=== PATIENT | female | born 1935 | race Two or more races ===

== ENCOUNTER 2017-01-19 18:36 | Inpatient (IN) | payer MEDICARE, OTHER ==
[~2017-01-19] VITALS: Ht 157.5 cm; Wt 45.4 kg
--- NOTE | 2017-01-19 18:50 | NUR ---
MEDICAL CLEARANCE FOR [facility] ADMISSION PT IS UNABLE TO SLEEP, WITH DECREASED APPETITE. AWAITING MD ORDER
[2017-01-19 19:09] LABS: BASOPHILS % (AUTO) 0.5 % (0.0-2.0); EOSINOPHILS # (AUTO) 0.1 /CMM (0.0-0.7); EOSINOPHILS % (AUTO) 1.3 % (0.0-6.0); HEMATOCRIT 44 % (33-45); HEMOGLOBIN 14.8 g/dL (11.5-14.8); LYMPHOCYTES # (AUTO) 1.2 /CMM (0.8-4.8); LYMPHOCYTES % (AUTO) 22.8 % (20.0-44.0); MEAN CORPUSCULAR HEMOGLOBIN 31 PG (26.0-33.0); MEAN CORPUSCULAR HGB CONC 34 g/dl (31.0-36.0); MEAN CORPUSCULAR VOLUME 91 fL (82-100); MONOCYTES # (AUTO) 0.5 /CMM (0.1-1.30); MONOCYTES % (AUTO) 9.8 % (2.0-12.0); NEUTROPHILS # (AUTO) 3.6 /CMM (1.8-8.9); NEUTROPHILS % (AUTO) 65.6 % (43.0-81.0); PLATELET COUNT (AUTO) 197 /CMM (150-450); RDW COEFFICIENT OF VARIATION 12.8 (11.5-15.0); RED BLOOD CELL COUNT(AUTO) 4.84 MIL/uL (4.0-5.2); WHITE BLOOD COUNT (AUTO) 5.4 K/uL (4.3-11.0)
[2017-01-19 19:16] LABS: CALCIUM, SERUM 9.5 mg/dL (8.5-10.1); CARBON DIOXIDE 27 mmol/L (21-32); CHLORIDE 109 mmol/L (98-107); CREATININE 1.1 mg/dL (0.6-1.3); GLUCOSE 94 mg/dL (74-106); POTASSIUM 4.4 mmol/L (3.5-5.1); SODIUM SERUM 142 mmol/L (136-145); UREA NITROGEN, BLOOD 28 mg/dL (7-18)
[2017-01-19 19:30] LABS: ALANINE AMINOTRANSFERASE 36 U/L (12-78); ALBUMIN 3.1 g/dL (3.4-5.0); ALCOHOL, BLOOD < 3 mg/dL (0-0); ALKALINE PHOSPHATASE 74 U/L (46-116); ASPARTATE AMINOTRANSFERASE 40 U/L (15-37); BILIRUBIN,DIRECT 0.2 mg/dL (0.0-0.2); BILIRUBIN,TOTAL 0.5 mg/dL (0.2-1.0); SALICYLATE 6.9 mg/dL (2.8-20.0); TOTAL PROTEIN, SERUM 6.9 g/dL (6.4-8.2)
[2017-01-19 19:39] LABS: ACETAMINOPHEN < 2 ug/ml (10-30)
--- NOTE | 2017-01-19 19:47 | NUR ---
CALLED [facility] TO COME SEE PTMARLEN WITHIN THE HOUR
--- NOTE | 2017-01-19 19:50 | NUR ---
PT REFUSED TO URINATE AT THIS TIME. GOT VERBAL ORDER FROM [facility]AN[facility] STRAIGHT IN AND OUT CATH FOR URINE SAMPLE
--- NOTE | 2017-01-19 19:55 | NUR ---
URINE SAMPLE COLLECTED SENT TO LAB
[2017-01-19 20:02] LABS: APPEARANCE,URINE Clear (CLEAR); BILIRUBIN,URINE SMALL (NEGATIVE); BLOOD, URINE Small Ery/uL (NEGATIVE); COLOR,URINE Yellow (YELLOW); KETONES,URINE Trace (NEGATIVE); LEUKOCYTE ESTERASE ,URINE Small (NEGATIVE); NITRITE, URINE Positive (NEGATIVE); PH,URINE 5.5 (5.0-8.0); PROTEIN,URINE Negative (NEGATIVE); UGLUCOSE Negative (NEGATIVE)
[2017-01-19 20:24] LABS: BACTERIA,URINE 2+ /HPF (None Seen); SQUAMOUS EPITHELIAL CELL,UR Few /HPF (None Seen)
[2017-01-19] MEDS ORDERED: CEPHALEXIN MONOHYDRATE 500 MG CAPSULE PO ONE ×2 (20:45→21:00)
--- NOTE | 2017-01-19 20:48 | NUR ---
[facility] PSY[facility] EVAL AT BEDSIDE
--- NOTE | 2017-01-19 22:00 | NUR ---
REPORT GIVEN TO ARNEL FRITZ ACCEPTING MD DR AVINA PSYCH. [address] HOLD IN [facility]
--- NOTE | 2017-01-19 23:00 | NUR ---
ADMITTED THIS 81 YEARS OLD FEMALE FROM . PATIENT WAS PLACED ON 5150 HOLD DUE TO GRAVELY DISABLE, BIPOLAR DISEASE, AND MAJOR DEPRESSION PATIENT IS UNABLE TO EAT, CAN,T CARE FOR HER- SELF. PATIENT IS ALERT X 2- AMBULATORY REFUSED TO SIGN THE CONSENT PAPER ADVISEMENT EXPLAIN AND HANDED TO PATIENT. PATIENT ASLEEP RIGHT NOW NO DISTRESS NOTED BREATHING EVEN NORMAL PATTERN AFEBRILE. NO BEHAVIORAL PROBLEM NOTED WILL CONTINUES TO MONITOR THE PATIENT EVERY 15 MIS FOR SAFETY AND FALL PRECAUTIONS.
[2017-01-19] MEDS ORDERED: ZOLPIDEM TARTRATE 5 MG TABLET PO PRN (23:30)
[2017-01-19] MEDS ORDERED: MAG HYDROX/AL HYDROX/SIMETH 30 ML UDC PO PRN (23:30)
[2017-01-19] MEDS ORDERED: LORAZEPAM 0.5 MG TABLET PO PRN (23:30)
[2017-01-19] MEDS ORDERED: MAGNESIUM HYDROXIDE 30 ML UDC PO PRN (23:30)
[2017-01-19] MEDS ORDERED: ACETAMINOPHEN 325 MG TABLET PO PRN (23:30)
[2017-01-20] MEDS ORDERED: clonazePAM 0.5 MG TABLET PO PRN (06:30)
--- NOTE | 2017-01-20 06:31 | NUR ---
PER DAUGHTER SHAHAB PATIENT IS TAKING ONLY LEVOTHYROXINE 75 MCG WEEKLY AND KLONOPIN 0.5MG HS WILL ENDORSE TO THE MORNING NURSE.
[2017-01-20 07:23] LABS: ALANINE AMINOTRANSFERASE 38 U/L (12-78); ALBUMIN 2.7 g/dL (3.4-5.0); ALKALINE PHOSPHATASE 65 U/L (46-116); ASPARTATE AMINOTRANSFERASE 40 U/L (15-37); BILIRUBIN,TOTAL 0.5 mg/dL (0.2-1.0); CALCIUM, SERUM 8.7 mg/dL (8.5-10.1); CARBON DIOXIDE 26 mmol/L (21-32); CHLORIDE 109 mmol/L (98-107); CREATININE 0.8 mg/dL (0.6-1.3); GLUCOSE 92 mg/dL (74-106); POTASSIUM 4.2 mmol/L (3.5-5.1); SODIUM SERUM 143 mmol/L (136-145); TOTAL PROTEIN, SERUM 6.3 g/dL (6.4-8.2); UREA NITROGEN, BLOOD 23 mg/dL (7-18)
[2017-01-20 07:25] LABS: CHOLESTEROL 160 mg/dL (<200); HDL CHOLESTEROL 52 mg/dL (40-60); LDL 88 mg/dL (0-99); TRIGLYCERIDES 114 mg/dL (30-150)
[2017-01-20 07:36] LABS: BASOPHILS % (AUTO) 0.9 % (0.0-2.0); EOSINOPHILS # (AUTO) 0.1 /CMM (0.0-0.7); EOSINOPHILS % (AUTO) 2.2 % (0.0-6.0); HEMATOCRIT 42 % (33-45); HEMOGLOBIN 14.1 g/dL (11.5-14.8); LYMPHOCYTES # (AUTO) 1.1 /CMM (0.8-4.8); LYMPHOCYTES % (AUTO) 24.4 % (20.0-44.0); MEAN CORPUSCULAR HEMOGLOBIN 31 PG (26.0-33.0); MEAN CORPUSCULAR HGB CONC 34 g/dl (31.0-36.0); MEAN CORPUSCULAR VOLUME 92 fL (82-100); MONOCYTES # (AUTO) 0.5 /CMM (0.1-1.30); MONOCYTES % (AUTO) 11.3 % (2.0-12.0); NEUTROPHILS # (AUTO) 2.8 /CMM (1.8-8.9); NEUTROPHILS % (AUTO) 61.2 % (43.0-81.0); PLATELET COUNT (AUTO) 173 /CMM (150-450); RDW COEFFICIENT OF VARIATION 13.8 (11.5-15.0); RED BLOOD CELL COUNT(AUTO) 4.51 MIL/uL (4.0-5.2); WHITE BLOOD COUNT (AUTO) 4.5 K/uL (4.3-11.0)
[2017-01-20] MEDS ORDERED: OLAN10TA3 PO (07:58)
[2017-01-20] MEDS ORDERED: CLON0.5T4 PO (07:58)
[2017-01-20] MEDS ORDERED: LEVO75TA7 PO (07:58)
[2017-01-20] MEDS ORDERED: LEVO50TA8 PO (07:58)
[2017-01-20 08:00] VITALS: BP 104/59
[2017-01-20] MEDS: LEVOTHYROXINE SODIUM 75 MCG TABLET PO SCH (09:50)
--- NOTE | 2017-01-20 10:20 | NUR ---
gps reference librarian: notes thong (grnddtr) called and wants to visit on non-schedule hours. cn aware. dr. tariq here and made aware with verbal order okay for family to visit only for 30mins. thong made aware and will be here around 2pm as stated. pt made aware. Addendum: 01/20/17 at 1829 by GLADYS ALLEN LVN per rick (granddaughter), she can't drive late at night due to living in [place] as stated.
--- NOTE | 2017-01-20 15:00 | NUR ---
gps nephrology social worker: notes rick (granddaughter) arrived to visit and started making a scene in the nurses's station, refusing to have her bag checked in, stated, "how come last night, they were okay with my bag with me, i have my rent money in here, i'm not going to surrender my bag here." informed rick that it's gps policy and informed her that we have a locker for her belongings and also informed her that we have cameras. rick agreed to put her belongings in the locker room, but still not happy about it. rick still paranoid about the whole situation. rick visited her grandma at bedside.
--- NOTE | 2017-01-20 15:10 | NUR ---
gps protocol manager: notes rick (granddaughter) remains belligerent, stating, "i should have not brought her here since you have bad reviews, i don't know why i did that, but i get the one who evaluated her in the emergency room convince me that she will get better, all your staff lied to me, i was told she will be given her sleeping medication, i want to know all the name who works last night." staff and cn listened and answered all her questions and concerns.
--- NOTE | 2017-01-20 15:35 | NUR ---
gps methods analyst: notes rick (granddaughter) at the nurse's station and started making another scene; granddaughter suspicious to staff; asking for dr. tariq's number, insisting that her medications is not working and she has been taking zyprexa for two months and hasn't worked. educated granddaughter re: med by staff and cn, but still getting pararoid despite med education provided. cn spoke to pt and okay to release any information as stated. granddaughter accusing staff not giving her ambien last night for sleep, stated, "i was told they were going to give her ambien since she has insomnia problem." granddaughter continued to be belligerent; granddaughter demanded a name of the nurse that was on last night in the emergency room; stated, "i want her name who evaluated because she lied to me, i was told she is going to get better, but still she is not, she is still not eating." all questions and concerned answered by staff and cn.
[2017-01-20 16:00] VITALS: BP 117/64
--- NOTE | 2017-01-20 16:19 | NUR ---
gps business computers teacher: notes dr. tariq called with order to increase her ambien to 10mg po qhs prn and make klonopin 0.5mg po qhs routine instead of prn. order read back and carried out and acknowledged. also dr. tariq informed me that he has spoken to her granddaughter (rick).
[2017-01-20] MEDS: OLANZAPINE 5 MG/TAB.RAPDIS PO SCH ×2 (16:46→21:32)
--- NOTE | 2017-01-20 18:14 | NUR ---
gps molded candles wicker: md visit seen and examined by lisbeth chaudhry ([facility]) with order. rick (granddaughter) came back to visit and brought outside food. belongings locked up in the locker room by lux.
[2017-01-20 20:00] VITALS: BP 122/76
[2017-01-20] MEDS: clonazePAM 0.5 MG TABLET PO SCH (21:31)
[2017-01-20] MEDS: CEPHALEXIN MONOHYDRATE 500 MG CAPSULE PO SCH (21:32)
[2017-01-21] MEDS: ZOLPIDEM TARTRATE 5 MG TABLET PO PRN ×2 (00:38→21:38)
--- NOTE | 2017-01-21 06:22 | NUR ---
patient said she has a partial tooth which grand daughter took it home coz it was hurting to her. charge nurse jose reyes.
--- NOTE | 2017-01-21 06:25 | NUR ---
[id number] mg administered to the patient and recheck patient after30 minutes patients was sleeping sound patient sleep for 7.5 hrs.
--- NOTE | 2017-01-21 07:30 | NUR ---
RN GPS OPENING NOTE PT IS LYING IN BED, COMFORTABLY, A&OX2. NO SOB, BREATHING ON ROOM AIR. NO ACUTE DISTRESS NOTED, ATTENDED ALL NEEDS AND ANTICIPATED , DENIES SI/ HI AT THIS TIME. SAFETY PRECAUTIONS OBSERVED. WILL CONTINUE TO MONITOR. BED IS IN LOWEST POSITION, AND CALL LIGHT IS WITHIN REACH.
[2017-01-21 08:00] VITALS: BP 112/63
[2017-01-21] MEDS: CEPHALEXIN MONOHYDRATE 500 MG CAPSULE PO SCH ×2 (09:52→21:37)
[2017-01-21] MEDS: OLANZAPINE 5 MG/TAB.RAPDIS PO SCH ×3 (09:52→21:38)
[2017-01-21] MEDS: NICOTINE PATCH (14MG) 14 MG PATCH.TD24 TD SCH (09:52)
[2017-01-21] MEDS: LEVOTHYROXINE SODIUM 75 MCG TABLET PO SCH (09:52)
--- NOTE | 2017-01-21 13:30 | NUR ---
GPS RN NOTES PT.'S DAUGHTER ARE AT PT.'S BEDSIDE. EXPLAINED TO DAUGHTER PT.'S MEDICATION REGIMEN, AND PT.'S CONDITION, AND MOOD TODAY. ALL DAUGHTER'S QUESTIONS WERE ANSWERED.
--- NOTE | 2017-01-21 15:24 | NUR ---
GPS RN NOTES PT.'S DAUGHTER BROUGHT FOOD FROM OUTSIDE. PT. CONSUMED 16 OZ MALT SHAKE, 3 CHEESE STICKS, AND A WELSH. PT. IS IN BED.
[2017-01-21 16:00] VITALS: BP 120/73
--- NOTE | 2017-01-21 16:00 | NUR ---
GPS RN NOTES PT.'S GRANDDAUGHTER, EMILIANO CALLED TO RECEIVE INFORMATION ABOUT HER GRANDMOTHER. EMILIANO IS NOT PT.'S FACE SHEET. ASKED PT. IF I HAVE PERMISSION TO SPEAK WITH EMILIANO HER GRANDDAUGHTER ABOUT HER CONDITION IN THE HOSPITAL, AND PT. AGREED. ON THE PHONE PT.'S TONE OF VOICE WAS LOUD, AND CRYING CLAIMING THAT THE DOCTORS HAVE NOT CHANGED ANYTHING IN HER GRANDMOTHER'S MEDICATION REGIMEN SINCE SHE WAS ADMITTED TO THE HOSPITAL, THAT HER GRANDMOTHER IS COUNTING ALL THE GENERATIONS OF CHILDREN ON HER HANDS, AND NOT SLEEPING. PT. ALSO STATES THAT THE DOCTOR'S ARE NOT CALLING BACK AFTER SHE LEAVES MESSAGES. PT. STATED THAT SHE TALKED TO DOCTOR AVINA, BUT WANTS TO SPEAK WITH ANOTHER DOCTOR WHO SAW HER GRANDMOTHER TODAY. GRANDDAUGHTER WAS EXPLAINED THAT HER GRANDMOTHER HAS BEEN EATING, AND SLEPT 7.5 HS LAST NIGHT PER WAREHOUSE FORKLIFT OPERATOR NURSE OBSERVATION. THAT THE I WOULD REACH OUT TO THE DOCTOR'S TO CALL HER BACK REGARDING CONCERNS ABOUT HER GRANDMOTHER'S MEDICATIONS AND CHANGES IN HEALTH CONDITION.
--- NOTE | 2017-01-21 16:15 | NUR ---
GPS RN NOTES TALKED TO DOCTOR NEGRON OVER THE PHONE TO EXPLAIN ABOUT PT.'S GRANDDAUGHTERS PHONE CALL. DOCTOR NEGRON EXPLAINED THAT THE CHARGE NURSE'S CAN HELP ME WITH THE FAMILY MEMBERS.
--- NOTE | 2017-01-21 16:20 | NUR ---
GPS RN NOTE CHARGE NURSE CARMINA IS AWARE OF FAMILY MEMBER, EMILIANO CALLING. PER CHARGE NURSE IF THE PT.'S GRANDDAUGHTER CALLS AGAIN CHARGE NURSE WILL TALK TO HER.
--- NOTE | 2017-01-21 19:16 | NUR ---
RN GPS CLOSING NOTE PT IS LYING IN BED, COMFORTABLY, A&OX2. NO SOB, BREATHING ON ROOM AIR. NO ACUTE DISTRESS NOTED, ATTENDED ALL NEEDS AND ANTICIPATED. SAFETY PRECAUTIONS OBSERVED. BED IS IN LOW POSITION. WILL ENDORSE REPORT TO TOBACCO CURER NURSE.
[2017-01-21 20:00] VITALS: BP 113/73
[2017-01-21] MEDS: clonazePAM 0.5 MG TABLET PO SCH (21:37)
[2017-01-22 08:00] VITALS: BP 110/66
[2017-01-22] MEDS: NICOTINE PATCH (14MG) 14 MG PATCH.TD24 TD SCH (08:20)
[2017-01-22] MEDS: LEVOTHYROXINE SODIUM 75 MCG TABLET PO SCH (08:20)
[2017-01-22] MEDS: CEPHALEXIN MONOHYDRATE 500 MG CAPSULE PO SCH ×2 (08:20→21:48)
[2017-01-22] MEDS: OLANZAPINE 5 MG/TAB.RAPDIS PO SCH ×3 (08:21→21:48)
[2017-01-22] MEDS: BOOST PLUS FOOD-VANILLA 237 ML BOX PO SCH ×2 (13:17→16:25)
[2017-01-22 16:00] VITALS: BP 110/65
[2017-01-22 20:00] VITALS: BP 113/64
[2017-01-22] MEDS: clonazePAM 0.5 MG TABLET PO SCH (21:48)
[2017-01-23 08:00] VITALS: BP 106/57
[2017-01-23] MEDS: BOOST PLUS FOOD-VANILLA 237 ML BOX PO SCH ×3 (08:15→16:31)
[2017-01-23] MEDS: OLANZAPINE 5 MG/TAB.RAPDIS PO SCH ×3 (08:16→21:48)
[2017-01-23] MEDS: LEVOTHYROXINE SODIUM 75 MCG TABLET PO SCH (08:16)
[2017-01-23] MEDS: NICOTINE PATCH (14MG) 14 MG PATCH.TD24 TD SCH (08:16)
[2017-01-23] MEDS: CEPHALEXIN MONOHYDRATE 500 MG CAPSULE PO SCH ×2 (08:16→21:47)
--- NOTE | 2017-01-23 10:41 | NUR ---
initial discharge plan: Pt. lives with her daughter, Reema Riggs, at [address] [facility], [place] [phone] and wants to discharge. SW will confirm with pt's daughter if pt. is able to return.
--- NOTE | 2017-01-23 10:50 | NUR ---
SW left a voicemail for pt's daughter, Reema Riggs, to discuss discharge planning. SW left a direct phone number to be contacted. ANJALI will follow up.
[2017-01-23 16:14] VITALS: BP 107/65
[2017-01-23 19:46] VITALS: BP 118/63
[2017-01-23] MEDS: MIRTAZAPINE 15 MG TABLET PO SCH (21:47)
[2017-01-23] MEDS: clonazePAM 0.5 MG TABLET PO SCH (21:47)
[2017-01-23] MEDS ORDERED: MIRTAZAPINE 15 MG TABLET PO SCH (22:00)
[2017-01-23] MEDS: ZOLPIDEM TARTRATE 5 MG TABLET PO PRN (23:53)
--- NOTE | 2017-01-23 23:54 | NUR ---
GPS RN: PATIENT AWAKE IN THE ROOM, OFFERED HER SLEEPING MEDICATION- AMBIEN 10 MG- GIVEN ORALLY ORDERED. WILL CONTINUE TO MONITOR PATIENT AND THE EFFECTIVENESS OF THE THE MEDICATION.
[2017-01-24] MEDS: LEVOTHYROXINE SODIUM 75 MCG TABLET PO SCH (07:57)
[2017-01-24 08:00] VITALS: BP 109/65
[2017-01-24] MEDS: OLANZAPINE 5 MG/TAB.RAPDIS PO SCH ×3 (08:00→21:17)
[2017-01-24] MEDS: NICOTINE PATCH (14MG) 14 MG PATCH.TD24 TD SCH (08:00)
[2017-01-24] MEDS: CEPHALEXIN MONOHYDRATE 500 MG CAPSULE PO SCH ×2 (08:00→21:18)
[2017-01-24] MEDS: BOOST PLUS FOOD-VANILLA 237 ML BOX PO SCH ×3 (08:08→16:36)
--- NOTE | 2017-01-24 15:33 | NUR ---
SW spoke with pt's daughter, Reema Riggs, who informed the psychotherapist social worker that pt. cannot return home and they will her placed in a facility. SW agreed to start sending referrals.
--- NOTE | 2017-01-24 15:34 | NUR ---
ANJALI received a voicemail from pt's granddaughter, Trini [phone] who stated that pt's daughter, Reema [phone] is not well herself and is not able to make decisions. She asked to be called back to discuss pt's care. ANJALI called back and had to leave a voicemail as Trini did not answer. Will follow up
[2017-01-24 16:00] VITALS: BP 111/65
[2017-01-24 20:30] VITALS: BP 119/59
[2017-01-24] MEDS: MIRTAZAPINE 15 MG TABLET PO SCH (21:18)
[2017-01-24] MEDS: clonazePAM 0.5 MG TABLET PO SCH (21:18)
[2017-01-25] MEDS: ZOLPIDEM TARTRATE 5 MG TABLET PO PRN (00:48)
--- NOTE | 2017-01-25 07:30 | NUR ---
received pt. keeping to self,stays in room.
[2017-01-25 08:00] VITALS: BP 121/71
[2017-01-25] MEDS: CEPHALEXIN MONOHYDRATE 500 MG CAPSULE PO SCH ×2 (10:06→21:11)
[2017-01-25] MEDS: NICOTINE PATCH (14MG) 14 MG PATCH.TD24 TD SCH (10:06)
[2017-01-25] MEDS: OLANZAPINE 5 MG/TAB.RAPDIS PO SCH ×3 (10:06→21:11)
[2017-01-25] MEDS: LEVOTHYROXINE SODIUM 75 MCG TABLET PO SCH (10:06)
[2017-01-25] MEDS: BOOST PLUS FOOD-VANILLA 237 ML BOX PO SCH ×3 (10:07→17:13)
--- NOTE | 2017-01-25 11:30 | NUR ---
dr. tariq in to see pt.
[2017-01-25 16:01] VITALS: BP 104/60
--- NOTE | 2017-01-25 18:26 | NUR ---
no change in status.
--- NOTE | 2017-01-25 19:30 | NUR ---
GPS RN NOTE, RECEIVED PATIENT AWAKE AND IN BED, NO S/S OR COMPLAINTS OF PAIN AT THIS TIME. PATIENT IS DISPLAYING NO S/S OF APPARENT DISTRESS AT THIS TIME. PATIENT BREATHING IS UNLABORED WITH EQUAL RISE AND FALL OF THE CHEST. PATIENT IS ALERT AND ORIENTED X 3 ON ROOM AIR WITH A SPO2 97%. PATIENT COMPLAINT WITH MEDICATION, ANXIOUS, COOPERATIVE, AND NEEDS REORIENTATION. PATIENT DENIES SUICIDE AND HOMICIDAL IDEATIONS AT THIS TIME. PATIENT ASSISTED WITH TURNING AND REPOSITIONING Q2HR AND PRN FOR COMFORT AND CIRCULATION. PATIENT HAS NO NEEDS AT THIS TIME. PATIENT EDUCATED ON THE USE OF THE CALL LOZADA. PATIENT BED SIDE RAILS UP X2 FOR SAFETY, BED IS LOCKED AND LOW WILL CONTINUE TO MONITOR AND MAINTAIN SAFETY.
[2017-01-25 20:36] VITALS: BP 125/61
[2017-01-25] MEDS ORDERED: MIRTAZAPINE 15 MG TABLET ONE (20:58)
--- NOTE | 2017-01-25 20:58 | NUR ---
GPS RN NOTE, PATIENT HAS A REMERON 30MG PO HS ORDER. [facility] DOES NOT HAVE THIS MEDICATION ON NORMAL MAR. OVERRIDE REMERON 30MG PO HS ORDERED. GAVE REMERON 30MG PO HS @ 2109 ORDERED. WILL CONTINUE TO MONITOR THIS PATIENT.
[2017-01-25] MEDS ORDERED: MIRTAZAPINE 15 MG TABLET PO SCH (22:00)
[2017-01-26 08:00] VITALS: BP 106/62
[2017-01-26] MEDS: OLANZAPINE 5 MG/TAB.RAPDIS PO SCH ×3 (08:43→21:09)
[2017-01-26] MEDS: CEPHALEXIN MONOHYDRATE 500 MG CAPSULE PO SCH ×2 (08:43→21:08)
[2017-01-26] MEDS: LEVOTHYROXINE SODIUM 75 MCG TABLET PO SCH (08:43)
[2017-01-26] MEDS: NICOTINE PATCH (14MG) 14 MG PATCH.TD24 TD SCH (08:44)
[2017-01-26] MEDS: BOOST PLUS FOOD-VANILLA 237 ML BOX PO SCH ×3 (09:03→16:09)
[2017-01-26 16:00] VITALS: BP 108/71
--- NOTE | 2017-01-26 16:32 | NUR ---
ANJALI spoke with pt's graddaughter, Trini [phone] who wants the patient to return home as long as she eats and sleeps. SW spoke with the patient about whether she would want to be placed in a facility, pt. refused. Pt. insists that she wants to return home and will not go to a facility. MD decided to keep the patient over the weekend as she still complained about not having appetite and not sleeping well.
[2017-01-26 20:00] VITALS: BP 106/69
[2017-01-26] MEDS ORDERED: TRAZODONE 50 MG TABLET ONE (20:42)
--- NOTE | 2017-01-26 20:42 | NUR ---
GPS RN NOTE, PATIENT HAS A TRAZODONE 100MG PO HS. [facility] DOES NOT HAVE THIS MEDICATION ON NORMAL MAR. OVERRIDE TRAZODONE 100MG PO HS ORDERED. TRAZODONE 100MG PO HS@ 2108 ORDERED. WILL CONTINUE TO MONITOR THIS PATIENT.
[2017-01-26] MEDS: TRAZODONE 50 MG TABLET PO SCH (21:09)
[2017-01-27] MEDS: NICOTINE PATCH (14MG) 14 MG PATCH.TD24 TD SCH (07:59)
[2017-01-27 08:00] VITALS: BP 99/67
[2017-01-27] MEDS: OLANZAPINE 5 MG/TAB.RAPDIS PO SCH ×3 (08:02→21:34)
[2017-01-27] MEDS: LEVOTHYROXINE SODIUM 75 MCG TABLET PO SCH (08:03)
[2017-01-27] MEDS: BOOST PLUS FOOD-VANILLA 237 ML BOX PO SCH ×3 (08:04→16:08)
--- NOTE | 2017-01-27 08:05 | NUR ---
gps breakdown man: notes boost drink unable to scan due to level fading and label not placed properly.
[2017-01-27 16:01] VITALS: BP 134/80
--- NOTE | 2017-01-27 19:34 | NUR ---
GPS RN NOTES RECEIVED ON BED WITH FAMILY MEMBERS AT BEDSIDE,A/0 X2-3.AMBULATORY,DENIES DISCOMFORTS AT THE MOMENT.APPEARS DEPRESSED BUT ABLE TO MAKE EYE CONTACT WHEN COMMUNICATING.MED COMPLIANT PER REPORT.WILL CONTINUE TO MONITOR BEHAVIOR Q 15 MINUTES AND MANAGE ACCORDINGLY.
[2017-01-27 20:00] VITALS: BP 116/67
[2017-01-27 20:05] VITALS: BP 116/67
[2017-01-27] MEDS: TRAZODONE 50 MG TABLET PO SCH (21:34)
[2017-01-28 08:00] VITALS: BP 111/57
[2017-01-28] MEDS: NICOTINE PATCH (14MG) 14 MG PATCH.TD24 TD SCH (08:27)
[2017-01-28] MEDS: LEVOTHYROXINE SODIUM 75 MCG TABLET PO SCH (08:28)
[2017-01-28] MEDS: OLANZAPINE 5 MG/TAB.RAPDIS PO SCH ×3 (08:28→22:37)
[2017-01-28] MEDS: BOOST PLUS FOOD-VANILLA 237 ML BOX PO SCH ×3 (08:30→16:04)
[2017-01-28 16:12] VITALS: BP 111/68
[2017-01-28 20:00] VITALS: BP 105/66
[2017-01-28] MEDS ORDERED: clonazePAM 0.5 MG TABLET PO PRN (21:00)
[2017-01-28] MEDS ORDERED: TEMAZEPAM 7.5 MG CAPSULE ONE (21:11)
[2017-01-28] MEDS ORDERED: MIRTAZAPINE 15 MG TABLET ONE (21:26)
[2017-01-28] MEDS: MIRTAZAPINE 15 MG TABLET PO SCH (21:42)
[2017-01-29 08:00] VITALS: BP 112/71
[2017-01-29] MEDS: NICOTINE PATCH (14MG) 14 MG PATCH.TD24 TD SCH (08:11)
[2017-01-29] MEDS: OLANZAPINE 5 MG/TAB.RAPDIS PO SCH ×3 (08:11→21:45)
[2017-01-29] MEDS: LEVOTHYROXINE SODIUM 75 MCG TABLET PO SCH (08:18)
[2017-01-29] MEDS: BOOST PLUS FOOD-VANILLA 237 ML BOX PO SCH ×3 (09:22→16:02)
[2017-01-29 16:16] VITALS: BP 106/62
[2017-01-29 20:19] VITALS: BP 93/59
[2017-01-29] MEDS: MIRTAZAPINE 15 MG TABLET PO SCH (21:45)
--- NOTE | 2017-01-30 00:36 | NUR ---
Pt has been quite passive, withdrawn, guarded, blunted, unkempt, & evasive but compliant with care w/o any promptings.
[2017-01-30 08:00] VITALS: BP 116/70
[2017-01-30] MEDS: NICOTINE PATCH (14MG) 14 MG PATCH.TD24 TD SCH (08:04)
[2017-01-30] MEDS: OLANZAPINE 5 MG/TAB.RAPDIS PO SCH ×3 (08:04→21:29)
[2017-01-30] MEDS: LEVOTHYROXINE SODIUM 75 MCG TABLET PO SCH (08:05)
[2017-01-30] MEDS: BOOST PLUS FOOD-VANILLA 237 ML BOX PO SCH ×3 (08:05→16:48)
--- NOTE | 2017-01-30 10:24 | NUR ---
SW and psychiatrist met with the patient today. Pt. reported that she has been sleeping better over the weekend and her appetite is better too. She reported that she is ready to go home.
--- NOTE | 2017-01-30 14:21 | NUR ---
ANJALI spoke with pt's granddaughter, Trini [phone] who is concerned about pt returning home as she thinks pt. lies to everyone saying she eats and sleeps so that she can go home. Trini had some questions that ANJALI promised to discuss with the doctor (like, can the patient be on Klonopin during the day as it increases her appetite, and can she prescribed sleeping medication so she can sleep well at night). Trini stated that someone from their family will come to see the patient tonight and will follow up with the social media project manager tomorrow to report their opinion about whether they think pt is ready for discharge. ANJALI noted that if for any reason family does not agree with the doctor, the doctor will be provided that information and it will be up to the doctor to decide whether pt. can or cannot stay longer at the hospital. ANJALI will follow up with her tomorrow.
[2017-01-30 16:00] VITALS: BP 139/90
[2017-01-30 19:53] VITALS: BP 165/81
[2017-01-30 20:04] VITALS: BP 149/81
[2017-01-30] MEDS: MIRTAZAPINE 15 MG TABLET PO SCH (21:29)
--- NOTE | 2017-01-31 01:12 | NUR ---
GPS RN NOTE, PATIENT HAS A COMPLAINT OF FEELING ANXIOUS AND WOULD LIKE MEDICATION TO HELP CALM HER DOWN. PATIENT VITAL SIGNS ARE STABLE. GAVE KLONOPIN 0.5MG PO 8HR PRN ORDERED. WILL REASSESS FOR ANXIETY AND I WILL CONTINUE TO MONITOR THIS PATIENT.
[2017-01-31 08:00] VITALS: BP 130/99
[2017-01-31] MEDS: OLANZAPINE 5 MG/TAB.RAPDIS PO SCH ×3 (08:46→21:39)
[2017-01-31] MEDS: LEVOTHYROXINE SODIUM 75 MCG TABLET PO SCH (08:46)
[2017-01-31] MEDS: NICOTINE PATCH (14MG) 14 MG PATCH.TD24 TD SCH (08:46)
[2017-01-31] MEDS: BOOST PLUS FOOD-VANILLA 237 ML BOX PO SCH ×3 (08:48→17:00)
--- NOTE | 2017-01-31 15:29 | NUR ---
SW and psychiatrist spoke with the patient, pt reported that she slept a few hours but her appetite is better. Pt. got up and was walking around today and appeared to be doing much better. ANJALI spoke with pt's granddaughter, Trini [phone] and reported that psychiatrist will be changing Klonipin from .5MG to 1MG a day and will discharge the patient tomorrow. Trini agreed to picking belt operator the patient tomorrow.
[2017-01-31 16:00] VITALS: BP 130/66
[2017-01-31 20:15] VITALS: BP 143/79
[2017-01-31] MEDS: MIRTAZAPINE 15 MG TABLET PO SCH (21:39)
[2017-01-31] MEDS ORDERED: clonazePAM 0.5 MG TABLET PO PRN (22:00)
[2017-02-01 08:00] VITALS: BP 116/73
[2017-02-01] MEDS: BOOST PLUS FOOD-VANILLA 237 ML BOX PO SCH (08:45)
[2017-02-01] MEDS: OLANZAPINE 5 MG/TAB.RAPDIS PO SCH (08:45)
[2017-02-01] MEDS: NICOTINE PATCH (14MG) 14 MG PATCH.TD24 TD SCH (08:46)
[2017-02-01] MEDS: LEVOTHYROXINE SODIUM 75 MCG TABLET PO SCH (08:46)
--- NOTE | 2017-02-01 10:00 | NUR ---
GPS CAD DETAILER NOTE: PATIENT DISCHARGE BACK HOME [address] [facility] [address] PICKED UP BY GRANDDAUGHTEREMILIANO PATIENT IN STABLE CONDITION NO S/S DISTRESS NOTED, VSS STABLE PT DENIES SI/HI , ALL BELONGINGS AND VALUABLES RETURNED TO PATIENT ,BELONGING LIST SIGN. PATIENT EDUCATED MEDICATIONS MGMT AND TO FOLLOW UP WITH PSYCHIATRIST .DR AVINA DC HOLD [phone] ,DR HERBERT NOTIFIED OF DISCHARGE.EXIT CARE DONE PRINTED ,SIGN AND GIVEN TO PATIENT, SKIN INTACT.
--- NOTE | 2017-02-01 10:51 | NUR ---
Discharge note: discharged back home with granddaughter to [address] [place] [id number]. GranddaughterTrini [phone] picked up the patient around 10:00AM. Pt. was calm and cooperative, per granddaughter, a little confused. Pt. agreed with the discharge plan and so did the granddaughter. Pt. denied suicidal/homicidal ideations. Pt. will follow up with Dr. Trevon Cadena [address] [place] [address] Pt. is a smoker, hence was referred to Nicotine Anonymous meeting at [facility] for Nicotine users on Monday at 8:00 PM by calling [phone] PIN: [id number] . SW provided information and pt. verbalized understanding. Discharge paperwork has been signed and discharge instructions were provided to the patient and pt's granddaughter. Pt. was also provided a referral to [address] [place] [id number] to follow up with a psychiatrist.
== END 2017-02-01 10:00 | disposition home or self-care (01) | DRG 881 ==
LOC: ER 18:38 → GPS 21:30
PROVIDERS: ADMIT Psychiatry & Neurology Psychiatry; ATTEND Nurse Practitioner Acute Care
DX: F32.9 Major depressive disorder, single episode, unspecified (principal); E43 Unspecified severe protein-calorie malnutrition; N17.0 Acute kidney failure with tubular necrosis; Z68.1 Body mass index [BMI] 19.9 or less, adult; N39.0 Urinary tract infection, site not specified; F29 Unspecified psychosis not due to a substance or known physiological condition; F41.9 Anxiety disorder, unspecified; E03.9 Hypothyroidism, unspecified; E88.09 Other disorders of plasma-protein metabolism, not elsewhere classified; F17.210 Nicotine dependence, cigarettes, uncomplicated; B96.20 Unspecified Escherichia coli [E. coli] as the cause of diseases classified elsewhere
CPT/HCPCS: 36415; 80048-TC; 80053-TC; 80061-TC; 80076-TC; 80305; 81000-TC; 84443-TC; 85025-TC; 87081-TC; 87086-TC; 87186-TC; A4606; G0480; Z7610